=== PATIENT | female | born 1995 | race Caucasian/White ===

== ENCOUNTER 2024-12-27 09:01 | Outpatient (CLI) | payer BC, SELFPAY ==
--- NOTE | 2024-12-27 09:15 | CRLHL7_ITS ---
For Patients: As a result of the Cures Act, medical imaging exams and procedure reports are released immediately into your electronic medical record. You may view this report before your referring provider. If you have questions, please contact your health care provider. OB ULTRASOUND ??? TWIN INDICATION: Dating and viability. TECHNIQUE: Real time grayscale imaging of the fetus was performed. Transvaginal. LMP: 10/24/2024. PUMA by LMP: 07/31/2025. GA: 9 w, 1 d. Previous US: Not provided. TWIN A: CRL: 2.7 cm. 9 w 4 d. PUMA: 07/28/2025. FHR: 202 and 193 BPM. Gestational sac: 4.7 cm. Appears within normal limits. Yolk sac: 4.4 mm. Appears within normal limits. TWIN B: CRL: 2.8 cm. 9 w 4 d. PUMA: 07/28/2025. FHR: 202 and 196 BPM. Gestational sac: 4.1 cm. Appears within normal limits. Yolk sac: 4 mm. Appears within normal limits. Di-Di Right ovary: Within normal limits. 3.2 x 1.6 x 2.2 cm. CL. Left ovary: Within normal limits. 2.9 x 2.2 x 2.6 cm. CL. IMPRESSION: 1. Living twin diamniotic-dichorionic gestation. 2. Left-sided subchorionic hemorrhage measures 1.5 x 1.0 x 0.6 cm. 3. Twin A measures 9 weeks 4 days with sonographic due date 07/28/2025. 4. Twin B measures 9 weeks 4 days with a sonographic due date of 07/28/2025. 5. heart rate higher end of normal for each twin. Holland Coley M.D. Diagnostic Radiologist [email or web address] KARAN/polina fish/Dictated by: Holland Coley MD @ 12/28/2024 8:02:00 AM (Electronically Signed)
== END 2024-12-27 09:02 | disposition home or self-care (01) ==
LOC: US 09:04
PROVIDERS: PCP Family Medicine; Visit Provider Midwife
DX: O30.041 Twin pregnancy, dichorionic/diamniotic, first trimester (principal); Z3A.09 9 weeks gestation of pregnancy
CPT/HCPCS: 76817; 83021; 86703; 86706; 86803; 86850; 86900; 86901; 87086; 87340; 87491; 87591

== ENCOUNTER 2024-12-27 10:26 | Outpatient (CLI) | payer BC, SELFPAY ==
[2024-12-27 14:55] LABS: Chlamydia DNA Amplified* NOT DETECTED (No Detected); GC DNA Amplified* NOT DETECTED (No Detected)
== END 2024-12-27 10:27 | disposition home or self-care (01) ==
PROVIDERS: PCP Family Medicine; Visit Provider Midwife
DX: Z34.01 Encounter for supervision of normal first pregnancy, first trimester (principal)
CPT/HCPCS: 83020; 83021; 85660; 86592; 86703; 86704; 86706; 86762; 86787; 86803; 86850; 86900; 86901; 87086; 87340; 87491; 87591

== ENCOUNTER 2025-01-10 10:06 | Outpatient (CLI) | payer BC, SELFPAY ==
--- NOTE | 2025-01-10 10:15 | CRLHL7_ITS ---
For Patients: As a result of the Cures Act, medical imaging exams and procedure reports are released immediately into your electronic medical record. You may view this report before your referring provider. If you have questions, please contact your health care provider. OBSTETRICAL ULTRASOUND, 01/10/2025 CLINICAL INDICATION: Supervision of high-risk . Diamniotic dichorionic twins. tachycardia on first ultrasound. Surgery: No LMP: 10/24/2024 PUMA by LMP: 07/31/2025 Gestational age: 11 weeks 1 day Previous ultrasound: Yes, 12/27/2024 PUMA by ultrasound: 07/28/2025 Gestational age: 9 weeks 4 days TECHNIQUE: Real-time rangel-scale imaging of the fetus was performed transabdominal. FINDINGS: Di/Di twins. BABY A: CRL: 5.0 cm, 11 weeks 5 days; PUMA 07/27/2025 heart rate: 180 BPM Gestational sac: 5.9 cm, appears within normal limits Yolk sac: Not visualized BABY B: CRL: 5.3 cm, 12 weeks 0 days; PUMA 07/25/2025 heart rate: 193 BPM Gestational sac: 5.0 cm, appears within normal limits Yolk sac: Not visualized Right ovary: Within normal limits; 3.4 x 1.4 x 2.0 cm, CL Left ovary: Not visualized COMMENT: Previous ultrasound showed tachycardia for both twins: Baby A heart rate of 202 and 193, Baby B heart rate of 202 and 196. Baby B still showing tachycardia. IMPRESSION: 1. Twin A: Sonographic gestational age of 11 weeks 5 days and sonographic due date of 07/27/2025. heart rate 180 beats per minute. 2. Twin B: Sonographic gestational age of 12 weeks 0 days with sonographic due date of 07/25/2025. heart rate 193 beats per minute. HOLLAND GREGORY M.D. Diagnostic Radiologist [email or web address] Transcribed: 5:[address]/Dictated by: Holland Gregory MD @ 01/10/2025 4:58:00 PM (Electronically Signed)
== END 2025-01-10 10:07 | disposition home or self-care (01) ==
LOC: US 10:06
PROVIDERS: PCP Family Medicine; Visit Provider Midwife
DX: O30.041 Twin pregnancy, dichorionic/diamniotic, first trimester (principal); Z3A.11 11 weeks gestation of pregnancy
CPT/HCPCS: 76801; 76802; 84439; 84443

== ENCOUNTER 2025-02-06 13:56 | Outpatient (CLI) | payer BC, SELFPAY | END 2025-02-06 13:57 | disposition home or self-care (01) | PROVIDERS: PCP Family Medicine; Visit Provider Obstetrics & Gynecology | DX: O16.2 Unspecified maternal hypertension, second trimester (principal); Z3A.15 15 weeks gestation of pregnancy | CPT/HCPCS: 82565; 82570; 84156; 84450; 84460 ==

== ENCOUNTER 2025-02-11 05:23 | Outpatient (CLI) | payer BC, SELFPAY | END 2025-02-11 05:24 | disposition home or self-care (01) | LOC: NFLDREF 18:51 | PROVIDERS: PCP Family Medicine; Referring Provider Family Medicine; Visit Provider Obstetrics & Gynecology | DX: O16.2 Unspecified maternal hypertension, second trimester (principal); Z3A.15 15 weeks gestation of pregnancy | CPT/HCPCS: 82570; 84156 ==

== ENCOUNTER 2025-04-09 08:10 | Outpatient (CLI) | payer BC, SELFPAY ==
--- NOTE | 2025-04-09 08:15 | CRLHL7_ITS ---
For Patients: As a result of the Century Cures Act, medical imaging exams and procedure reports are released immediately into your electronic medical record. You may view this report before your referring provider. If you have questions, please contact your health care provider. INDICATION: Twin . Assess growth. TECHNIQUE: Ultrasound OB pelvis transabdominal. Real time rangel scale imaging of the fetuses was performed. COMPARISON: Ultrasound 03/13/2025 FINDINGS: Sonographic imaging demonstrates dichorionic diamniotic twin living intrauterine gestations. Cervical length measures 3.4 cm. Twin A: Fetus demonstrates a regular cardiac rate of 161 beats per minute. Fetus has a vertex orientation. The placenta lies anteriorly without evidence of placenta previa. Amniotic fluid volume appears normal. Single deepest vertical pocket: 5.7 cm. Persistent right umbilical vein is again visualized. The composite ultrasound gestational age is calculated at 24 weeks 3 days with an estimated sonographic due date of 07/27/2025. The estimated weight is 668 grams which lies at the 56%. The following biometric measurements were obtained: Biparietal diameter: 6 cm, 24 weeks 2 days Head circumference: 23 cm, 25 weeks Abdominal circumference: 19.2 cm, 24 weeks Femur length: 4.3 cm, 24 weeks 2 days Twin B: Fetus demonstrates a regular cardiac rate of 155 beats per minute. Fetus has a vertex orientation. The placenta lies posteriorly without evidence of placenta previa. Amniotic fluid volume appears normal. Single deepest vertical pocket: 6.1 cm. The composite ultrasound gestational age is calculated at 24 weeks 1 day with an estimated sonographic due date of 07/29/2025. The estimated weight is 704 grams which lies at the 73%. The following biometric measurements were obtained: Biparietal diameter: 5.7 cm, 23 weeks 3 days Head circumference: 21.8 cm, 23 weeks 6 days Abdominal circumference: 20.4 cm, 25 weeks Femur length: 4.3 cm, 24 weeks 1 day IMPRESSION: 1. Living twin intrauterine gestations which appear to demonstrate appropriate interval growth. 2. Twin A: Composite ultrasound gestational age of 24 weeks 3 days with estimated sonographic due date of 07/27/2025. 3. Twin B: Composite ultrasound gestational age of 24 weeks 1 day with estimated sonographic due date of 07/29/2025. Dictated by Yobany Damon MD @ 04/13/2025 6:54:36 PM (Electronically Signed)
== END 2025-04-09 08:11 | disposition home or self-care (01) ==
LOC: US 08:11
PROVIDERS: PCP Family Medicine; Visit Provider Obstetrics & Gynecology
DX: O30.042 Twin pregnancy, dichorionic/diamniotic, second trimester (principal); Z3A.24 24 weeks gestation of pregnancy
CPT/HCPCS: 76816

== ENCOUNTER 2025-05-07 09:04 | Outpatient (CLI) | payer BC, SELFPAY | END 2025-05-07 09:05 | disposition home or self-care (01) | LOC: NFLDREF 09:05 | PROVIDERS: PCP Family Medicine; Visit Provider Obstetrics & Gynecology | DX: O30.002 Twin pregnancy, unspecified number of placenta and unspecified number of amniotic sacs, second trimester (principal); Z3A.27 27 weeks gestation of pregnancy | CPT/HCPCS: 76816; 82565; 82570; 84156; 84450; 84460; 86592; 86850; J2791 ==

== ENCOUNTER 2025-05-10 08:38 | Outpatient (CLI) | payer BC, SELFPAY | END 2025-05-10 08:39 | disposition home or self-care (01) | LOC: NFLDREF 05-14 03:02 | PROVIDERS: PCP Family Medicine; Referring Provider Family Medicine; Visit Provider Obstetrics & Gynecology | DX: R73.09 Other abnormal glucose (principal) | CPT/HCPCS: 82951; 82952 ==

== ENCOUNTER 2025-05-14 13:45 | Outpatient (CLI) | payer BC, SELFPAY | END 2025-05-14 13:46 | disposition home or self-care (01) | LOC: NFLDREF 05-15 13:17 | PROVIDERS: PCP Family Medicine; Referring Provider Family Medicine; Visit Provider Obstetrics & Gynecology | DX: O10.913 Unspecified pre-existing hypertension complicating pregnancy, third trimester (principal); Z3A.28 28 weeks gestation of pregnancy | CPT/HCPCS: 82565; 82570; 84156; 84450; 84460; 84520 ==

== ENCOUNTER 2025-05-20 08:15 | Outpatient (CLI) | payer BC, SELFPAY | END 2025-05-20 08:16 | disposition home or self-care (01) | PROVIDERS: PCP Family Medicine; Referring Provider Family Medicine; Visit Provider Obstetrics & Gynecology | DX: O10.913 Unspecified pre-existing hypertension complicating pregnancy, third trimester (principal) | CPT/HCPCS: 82565; 82570; 84156; 84450; 84460 ==

== ENCOUNTER 2025-06-04 08:13 | Outpatient (CLI) | payer BC, SELFPAY ==
--- NOTE | 2025-06-04 08:15 | CRLHL7_ITS ---
For Patients: As a result of the Century Cures Act, medical imaging exams and procedure reports are released immediately into your electronic medical record. You may view this report before your referring provider. If you have questions, please contact your health care provider. OBSTETRICAL ULTRASOUND, TWINS ??? BIOPHYSICAL PROFILE, 06/04/2025 INDICATION: Dichorionic/diamniotic twins. Growth. Biophysical profile. CLINICAL HISTORY: PUMA by LMP: 07/31/2025 Gestational Age: 31 weeks 6 days COMPARISON: 05/07/2025, 04/09/2025, 03/13/2025. TECHNIQUE: Real-time rangel-scale transabdominal imaging of the twin fetuses was performed. FINDINGS: Fetus: TWIN A Cervix: Not visualized positioning: Vertex Amniotic Fluid: 4.8 cm SDP BIOPHYSICAL PROFILE: Gross body movements: 2 tone: 2 Respiratory activity: 2 Amniotic fluid SDP: 2 Total score: 8 Placenta position: Anterior heart rate: 145 bpm BIOMETRY: BPD: 8.1 cm, 32 weeks 4 days, 64.4% HC: 29.5 cm, 32 weeks 4 days, 32.3% AC: 27.7 cm, 31 weeks 6 days, 46.4% FL: 5.9 cm, 30 weeks 5 days, 10.7% FL/AC Ratio: 21.2% HC/AC ratio: 1.1 EFW: 1799 grams; 3 lbs. 15 oz. age by this ultrasound: 32 weeks 0 days PUMA by this ultrasound: 07/30/2025 Percentile by PUMA: 30.4% Fetus: TWIN B positioning: Vertex Amniotic Fluid: 4.1 cm SDP BIOPHYSICAL PROFILE: Gross body movements: 2 tone: 2 Respiratory activity: 2 Amniotic fluid SDP: 2 Total score: 8 Placenta position: Posterior heart rate: 137 bpm BIOMETRY: BPD: 7.6 cm, 30 weeks 3 days, 7.2% HC: 28.8 cm, 31 weeks 5 days, 11.7% AC: 26.6 cm, 30 weeks 5 days, 17.2% FL: 6.0 cm, 31 weeks 2 days, 22.9% FL/AC Ratio: 22.6% HC/AC ratio: 1.1 EFW: 1674 grams; 3 lbs. 11 oz. age by this ultrasound: 31 weeks 0 days PUMA by this ultrasound: 08/06/2025 Percentile by PUMA: 15.3% IMPRESSION: TWIN A: 1. Sonographic gestational age is 32 weeks 0 days and sonographic due date is 07/30/2025. Good correlation with dates. Normal interval growth. 2. Estimated weight is 30th percentile. Abdominal circumference is 46th percentile. 3. Normal biophysical profile score of 8/8. 4. Vertex position, maternal right. Anterior placenta. TWIN B: 1. Sonographic gestational age is 31 weeks 0 days and sonographic due date is 08/06/2025. Sonographic age is 6 days behind the clinical age. 2. Estimated weight is 15th percentile. Abdominal circumference is 17th percentile. 3. Normal biophysical profile score of 8/8. 4. Vertex position, maternal left. Posterior placenta. HOLLAND GREGORY M.D. Diagnostic Radiologist [email or web address] Transcribed: 4:[address]/Dictated by: Holland Gregory MD @ 06/04/2025 3:28:00 PM (Electronically Signed)
== END 2025-06-04 08:14 | disposition home or self-care (01) ==
LOC: US 08:14
PROVIDERS: PCP Family Medicine; Visit Provider Obstetrics & Gynecology
DX: O30.043 Twin pregnancy, dichorionic/diamniotic, third trimester (principal); Z3A.32 32 weeks gestation of pregnancy
CPT/HCPCS: 76816; 76819; 82565; 82570; 84156; 84450; 84460

== ENCOUNTER 2025-06-12 12:49 | Outpatient (CLI) | payer BC, SELFPAY ==
--- NOTE | 2025-06-12 13:00 | CRLHL7_ITS ---
For Patients: As a result of the Cures Act, medical imaging exams and procedure reports are released immediately into your electronic medical record. You may view this report before your referring provider. If you have questions, please contact your health care provider. OBSTETRICAL ULTRASOUND TWINS ??? BIOPHYSICAL PROFILE, 06/12/2025 INDICATION: Dichorionic diamniotic twins. Biophysical profile. CLINICAL HISTORY: LMP: 10/24/2024 PUMA by LMP: 07/31/2025 Gestational Age: 33 weeks 0 days Surgery: No PRIOR ULTRASOUND: 06/04/2025 TECHNIQUE: Real-time rangel-scale transabdominal imaging of the fetuses was performed. FINDINGS: Fetus: TWIN A Cervix: Not visualized positioning: Vertex Amniotic Fluid: 4.4 cm SDP BIOPHYSICAL PROFILE: Gross body movements: 2 tone: 2 Respiratory activity: 2 Amniotic fluid SDP: 2 Total score: 8 Placenta position: Anterior heart rate: 135 bpm Fetus: TWIN B positioning: Vertex Amniotic Fluid: 3.0 cm SDP BIOPHYSICAL PROFILE: Gross body movements: 2 tone: 2 Respiratory activity: 2 Amniotic fluid SDP: 2 Total score: 8 Placenta position: Posterior heart rate: 142 bpm IMPRESSION: 1. Twin A: Normal biophysical profile score of 8/8. Anterior placenta. Maternal right, vertex position. 2. Twin B: Normal biophysical profile score of 8/8. Posterior placenta. Maternal left, vertex position. HOLLAND GREGORY M.D. Diagnostic Radiologist [email or web address] Transcribed: 4:[address]/Dictated by: Holland Gregory MD @ 06/12/2025 4:44:00 PM (Electronically Signed)
== END 2025-06-12 12:50 | disposition home or self-care (01) ==
LOC: US 12:49
PROVIDERS: PCP Family Medicine; Visit Provider Obstetrics & Gynecology
DX: O30.043 Twin pregnancy, dichorionic/diamniotic, third trimester (principal); Z3A.33 33 weeks gestation of pregnancy; O10.919 Unspecified pre-existing hypertension complicating pregnancy, unspecified trimester; O09.91 Supervision of high risk pregnancy, unspecified, first trimester
CPT/HCPCS: 76819; 82565; 82570; 84156; 84450; 84460

== ENCOUNTER 2025-06-19 09:05 | Outpatient (CLI) | payer BC, SELFPAY ==
[2025-06-20 11:53] LABS: Strep B DNA Probe POSITIVE (Negative)
[2025-06-20 12:02] LABS: Strep B Susceptibility Needed? No
== END 2025-06-19 09:06 | disposition home or self-care (01) ==
LOC: NFLDREF 10:12
PROVIDERS: PCP Family Medicine; Referring Provider Family Medicine; Visit Provider Obstetrics & Gynecology
DX: O10.913 Unspecified pre-existing hypertension complicating pregnancy, third trimester (principal); O30.043 Twin pregnancy, dichorionic/diamniotic, third trimester; Z3A.34 34 weeks gestation of pregnancy
CPT/HCPCS: 82565; 82570; 84156; 84450; 84460; 87081; 87653

== ENCOUNTER 2025-06-19 09:11 | Outpatient (CLI) | payer BC, SELFPAY ==
--- NOTE | 2025-06-19 09:15 | CRLHL7_ITS ---
For Patients: As a result of the Cures Act, medical imaging exams and procedure reports are released immediately into your electronic medical record. You may view this report before your referring provider. If you have questions, please contact your health care provider. OB ULTRASOUND BIOPHYSICAL PROFILE TWIN CLINICAL HISTORY: CHTN. COMPARISON: 06/12/2025. TECHNIQUE: Real time rangel scale imaging of the fetus was performed. Transabdominal imaging performed. FINDINGS: LMP: 10/24/2024. PUMA by LMP: 07/31/2025. GA: 34 weeks 0 days. TWIN A: Cervix: Not visualized. Position: Vertex. Amniotic Fluid: 3.8 cm SDP BIOPHYSICAL PROFILE Gross Body Movements: 2 Tone: 2 Respiratory Activity: 2 Amniotic Fluid SDP: 2 Total Score: 8 Placenta Position: Anterior. Dopplers: Heart Rate: 161 bpm. TWIN B: Positioning: Vertex. Amniotic Fluid: 3.6 cm SDP. BIOPHYSICAL PROFILE: Gross Body Movements: 2 Tone: 2 Respiratory Activity: 2 Amniotic Fluid SDP: 2 Total Score: 8 Placenta Position: Posterior. Dopplers: Heart Rate: 144 bpm. IMPRESSION: 1. Twin A: Normal biophysical profile 04/19. Vertex position, maternal right. 2. Twin B: Normal biophysical profile 04/19. Vertex position, maternal left. Holland Coley M.D. Diagnostic Radiologist [email or web address] Transcribed: 11:39 am DW/Dictated by: Holland Coley MD @ 06/19/2025 10:43:00 AM (Electronically Signed)
== END 2025-06-19 09:12 | disposition home or self-care (01) ==
LOC: US 09:11
PROVIDERS: PCP Family Medicine; Visit Provider Obstetrics & Gynecology
DX: O30.043 Twin pregnancy, dichorionic/diamniotic, third trimester (principal); O10.913 Unspecified pre-existing hypertension complicating pregnancy, third trimester; Z3A.34 34 weeks gestation of pregnancy
CPT/HCPCS: 76819; 82565; 82570; 84156; 84450; 84460; 87081; 87653

== ENCOUNTER 2025-06-25 09:12 | Outpatient (CLI) | payer BC, SELFPAY ==
--- NOTE | 2025-06-25 09:15 | CRLHL7_ITS ---
For Patients: As a result of the Cures Act, medical imaging exams and procedure reports are released immediately into your electronic medical record. You may view this report before your referring provider. If you have questions, please contact your health care provider. OBSTETRICAL ULTRASOUND ??? BIOPHYSICAL PROFILE INDICATION: Dichorionic diamniotic twins. Preexisting hypertension. CLINICAL HISTORY: LMP: 10/24/2024 PUAM by LMP: 07/31/2025 Gestational Age: 34 weeks 6 days PRIOR ULTRASOUND: 06/19/2025 TECHNIQUE: Real-time rangel-scale transabdominal imaging of the fetuses was performed. FINDINGS: Fetus: TWIN A Cervix: Not visualized positioning: Vertex Amniotic Fluid: 5.2 cm SDP BIOPHYSICAL PROFILE: Gross body movements: 2 tone: 2 Respiratory activity: 2 Amniotic fluid SDP: 2 Total score: 8 Placenta position: Anterior heart rate: 144 bpm Fetus: TWIN B positioning: Vertex Amniotic Fluid: 2.4 cm SDP BIOPHYSICAL PROFILE: Gross body movements: 2 tone: 2 Respiratory activity: 2 Amniotic fluid SDP: 2 Total score: 8 Placenta position: Posterior heart rate: 147 bpm IMPRESSION: 1. Twin A: Normal biophysical profile score of 8/8. Vertex position, maternal right. 2. Twin B: Normal biophysical profile score of 8/8. Vertex position, maternal left. Amniotic fluid single deepest pocket is 2.4 cm. HOLLAND GREGORY M.D. Diagnostic Radiologist [email or web address] Transcribed: 11:[address]/Dictated by: Holland Gregory MD @ 06/25/2025 10:33:00 AM (Electronically Signed)
== END 2025-06-25 09:13 | disposition home or self-care (01) ==
LOC: US 09:13
PROVIDERS: PCP Family Medicine; Visit Provider Obstetrics & Gynecology
DX: O30.043 Twin pregnancy, dichorionic/diamniotic, third trimester (principal); O10.913 Unspecified pre-existing hypertension complicating pregnancy, third trimester; Z3A.34 34 weeks gestation of pregnancy
CPT/HCPCS: 76819; 82565; 82570; 84156; 84450; 84460

== ENCOUNTER 2025-07-05 09:05 | Outpatient (CLI) | payer BC, SELFPAY | END 2025-07-05 09:06 | disposition home or self-care (01) | LOC: NFLDREF 07-06 19:57 | PROVIDERS: PCP Family Medicine; Referring Provider Family Medicine; Visit Provider Obstetrics & Gynecology | DX: O10.913 Unspecified pre-existing hypertension complicating pregnancy, third trimester (principal); O30.043 Twin pregnancy, dichorionic/diamniotic, third trimester; Z3A.36 36 weeks gestation of pregnancy | CPT/HCPCS: 82565; 82570; 84156; 84450; 84460 ==

== ENCOUNTER 2025-07-05 09:11 | Outpatient (CLI) | payer BC, SELFPAY ==
--- NOTE | 2025-07-05 09:15 | CRLHL7_ITS ---
For Patients: As a result of the Century Cures Act, medical imaging exams and procedure reports are released immediately into your electronic medical record. You may view this report before your referring provider. If you have questions, please contact your health care provider. OB ULTRASOUND PUMA by LMP: 07/31/2025. GA: 36 w, 2 d. Comparison: Ultrasound 06/25/2025, 06/19/2025, 06/12/2025, 06/04/2025. INDICATION: Di-di twins. TECHNIQUE: Real time grayscale imaging of the fetus was performed. Transabdominal. TWIN A: CERVIX: Not visualized. POSITIONING: Vertex. AMNIOTIC FLUID: 5.5 cm. SDP (N: greater than 2 x 1 cm) BIOPHYSICAL PROFILE: 2: Gross body movements 2: tone 2: Respiratory activity 2: Amniotic fluid SDP (N: greater than 2 x 1 cm) 8: Total score PLACENTA: Technique: Transabdominal. PLACENTA POSITION: Anterior. DOPPLER: heart rate: 142 bpm. BIOMETRY: BPD: 9.0 cm. 36 w, 4 d, 68%. HC: 32.9 cm. 37 w, 3 d, 49%. AC: 31.5 cm. 35 w, 3 d, 36%. FL: 6.7 cm. 34 w, 3 d, 8.7%. FL/AC ratio: 21.28%. HC/AC ratio: 1.05. EFW: 2693g. Weight: 5 lbs., 15 oz. age by this US: 36 w, 0 d. PUMA by this US: 08/02/2025. Percentile by PUMA: 31%. TWIN B: POSITIONING: Vertex. AMNIOTIC FLUID: 3.7 cm. SDP (N: greater than 2 x 1 cm) BIOPHYSICAL PROFILE: 2: Gross body movements 2: tone 2: Respiratory activity 2: Amniotic fluid SDP (N: greater than 2 x 1 cm) 8: Total score PLACENTA: Technique: Transabdominal. PLACENTA POSITION: Posterior. DOPPLER: heart rate: 147 bpm. Umbilical artery: 2.5-2.9 S/D. Greater than 34 we = less than 3.5. BIOMETRY: BPD: 8.1 cm. 32 w, 5 d, <3%. HC: 31.1 cm. 34 w, 6 d, 3.2%. AC: 30.1 cm. 34 w, 1 d, 8%. FL: 6.5 cm. 33 w, 4 d, <3%. FL/AC ratio: 21.65%. HC/AC ratio: 1.03. EFW: 2300g. Weight: 5 lbs., 1 oz. age by this US: 33 w, 6 d. PUMA by this US: 08/17/2025. Percentile by PUAM: 5.8%. IMPRESSION: 1. Twin A: Vertex position, maternal right. Sonographic gestational age 36 weeks 0 days and sonographic due date 08/02/2025. Good correlation with dates. Normal interval growth. Estimated weight 31st percentile. Abdominal circumference 36th percentile. Biophysical profile score 8/8. 2. Twin B: Vertex position, maternal left. Sonographic gestational age 33 weeks 6 days with sonographic due date 08/17/2025. Sonographic age is 17 days behind the clinical age. Estimated weight 6th percentile. Abdominal circumference 8th percentile. Femur length and BPD both less than 3rd percentile. Biophysical profile score 8/8. Doppler evaluation of the umbilical artery performed. S/D ratio 2.5. Holland Coley M.D. Diagnostic Radiologist [email or web address] KARAN/polina fish/Dictated by: Holland Coley MD @ 07/05/2025 11:05:00 AM (Electronically Signed)
== END 2025-07-05 09:12 | disposition home or self-care (01) ==
LOC: US 09:12
PROVIDERS: PCP Family Medicine; Visit Provider Obstetrics & Gynecology
DX: O30.043 Twin pregnancy, dichorionic/diamniotic, third trimester (principal); O36.5930 Maternal care for other known or suspected poor fetal growth, third trimester, not applicable or unspecified; Z3A.36 36 weeks gestation of pregnancy
CPT/HCPCS: 76816; 76819

== ENCOUNTER 2025-07-05 11:23 | Inpatient (IN) | payer BC, SELFPAY ==
[2025-07-05] VITALS (31 sets, daily range): BP systolic 121–157; BP diastolic 75–102; PULSE 79–112; RESP 12–16; TEMP 36.5–37; O2SAT 97–100; BMI 38.7
[2025-07-05 12:15] LABS: Hematocrit* 34.6 % (33.0-51.0); Hemoglobin* 11.4 gm/dL (12.0-16.0); Immature Granulocytes Abs Auto 0.05 K/uL (0.00-0.30); Immature Granulocytes Pct Auto 0.5 %; Mean Corpuscular HGB Conc 33 gm/dL (32-36); Mean Corpuscular Hemoglobin 28 pg (26-34); Mean Corpuscular Volume 85 fL (80-100); RDW Coefficient of Variation % 14.9 % (11.5-15.5); Red Blood Count* 4.06 m/uL (4.00-5.20); White Blood Count* 9.91 K/uL (4.50-11.00)
[2025-07-05 12:20] LABS: Lymphocytes Absolute Auto 1.00 K/uL (0.90-2.90); Slide Review Reflex No
[2025-07-05] MEDS: LACTATED RINGERS 1000 ML 1,000 ML 925 ML IV (12:30)
[2025-07-05] MEDS: LACTATED RINGERS 1000 ML 1,000 ML 125 ML IV ×3 (16:28→22:15)
--- NOTE | 2025-07-05 17:12 | P.LDBA_ITS ---
Subjective History of Present Illness Time Seen by Provider: 12:00 Narrative: Patient is being admitted to Labor and Delivery for delivery. She is a 30 year old at 36.2 weeks gestation. Her full history and physical was dictated by Dr. Gandhi on 06/25. Please see this for details. Patient presented for growth scan and high risk visit. She was subsequently diagnosed with new onset of growth restriction of twin B. US today Twin A: EFW 31%tile, AC 36%. SDP 5.5 cm. BPP 8/8. Twin B: EFW 5.8%tile, AC 8%tile. SDP 3.7 cm. BPP 8/8. Doppler wnl Twin B was previously at the 15%tile. Given that twin B has fallen off the growth curve and officially has growth restriction in the setting of di-di twins beyond 36 weeks, delivery was recommended. She has some lidia gold contractions but no other labor symptoms. Specific Issues/Plans G1 P 0 Partner: Dario H&P completed by Dr. Gandhi on 06/25 ? ? # Di/Di Twin * Genetic screening recommended - politely declined * 20-week detailed Level II US with MFM- order placed? * See details below. Twin A with persistent R umbilical vein, both with suboptimal cardiac views. Discordance 9% with Twin B bigger. * echos reportedly normal from 04/16 * Serial growth and monitoring per cHTN on meds * Discussed twin vaginal delivery 05/07/2025; patient favors primary delivery - requested 07/10/25 #Chronic HTN - Dx at 15 weeks, started labetolol on 02/06 > increased to 200mg BID on 02/20 > 300mg BID 02/25 > 300mg TID on 04/09 [x] baseline preE labs normal, UPCR 0.23 [x] 24 hour urine - normal at 260 ASA 81mg Serial growth US as above, weekly testing and labs starting at 32 weeks Previous mild AST elevation resolved as of 06/04, 46 on 06/12 > normalized on repeat [x] testing sheet after MFM consult 37 week delivery for cHTN on meds and twins # Elevated 1 hr GTT = 151. 3 hr GTT normal (82/165/122/112) # Anemia with Hb 10.7 at 28 weeks. Ferrous sulfate 325 mg QOD Repeat Hb at 34 weeks: 11.1 #Pre- BMI:33.4 # GBS positive. #Rh negative Rhogam at 28 weeks 05/07 Rhogam PP Imaging:? 1st trimester: 12/27/24 TWINS! 9 1/7 weeks by LMP, Each baby 9 4/7 weeks by u/s? PUMA: 07/31/2025 by LMP, c/w 1st trimester u/s. TLIUP? 01/10 early US: Twin A: Sonographic gestational age of 11 weeks 5 days and sonographic due date of 07/27/2025. heart rate 180 beats per minute. 2.Twin B: Sonographic gestational age of 12 weeks 0 days with sonographic due date of 07/25/2025. heart rate 193 beats per minute. Level 2 03/13: Anterior placentas, no previa. Cx 44mm. Twin A: Cephalic, maternal R. FHR 158bpm. Visualized anatomy normal aside from persistent R umbilical vein, suboptimal views of cardiac structures. EFW 328g at 47%ile, AC 66%ile. 3 vessel cord, MVP 4.3cm. Twin B: Variable presentation, maternal L/superior. FHR 151bpm. Visualized anatomy is normal, suboptimal cardiac views. EFW 364g at 77%ile, AC 77%ile. 3 vessel cord, MVP 5.9cm. Intertwin discordance of 9.4%. 04/09 Growth: - Twin A: Vertex. EFW 667.8g at 56%ile - BPD 60%, HC 77.7%, AC 43.5%, FL 50%. MVP 5.7cm. FHR 161bpm. - Twin B: Vertex. EFW 704g at 72.6%ile - BPD 28%, HC 31%, AC 77%, FL 48%. MVP 6.1cm. FHR 155bpm. 04/16: Both echoes within normal limits. Difficult study x2 but no apparent major anomalies. nothing further recommended. 05/07/25 = 27 6/7 wks - Twin A: Maternal right. Cephalic, SDP 5.3 cm, EFW 50.8% = 1191 g, AC 56.1%, all growth parameters within normal ranges. - twin B: Maternal left. Breech, SDP 4.9 cm, EFW 50.7% = 1190 g, AC 79.1%, all growth parameters within normal ranges - 1 gram weight discrepancy!!! 06/04: - Twin A: Vertex. EFW 1799g at 30%ile - BPD 64%, HC 32%, AC 46%, FL 10.7%. 8/8 BPP. MVP 4.8cm. - Twin B: Vertex. EFW 1674g at 15%ile - BPD 7%, 12%, AC 17%, FL 23%. 8/8BPP. MVP 4.1cm - 7% discordance Others: []? ? COVID:?declines Flu:?06/19/25 Tdap:?05/22/25 RSV: 06/12/25 32wk Mental Health:?06/04/25 34wk hgb:?11.1?? Pap: 12/22/2023 NILM?-per outside records. ? OB - Problem Based A/P Additional Plan (1) Chronic hypertension affecting : Status: Acute Plan: - Continue Labetalol 300 mg TID - PreE labs pending (2) High-risk supervision: Status: Acute (3) Twin : Status: Acute (4) growth restriction: Status: Acute Plan - Plan: Will proceed towards primary delivery per patient's preference on mode of delivery for twins. - Hgb/plt: 11.4/154 - T&S: A negative, antibody screen positive with identification pending (presumed from Rhophylac) - OR team notified. Will wait for NPO status which is anticipated to be after 1530. Patient will be continuously monitor the entire time while on L&D. Will proceed sooner if urgent or emergent. OB Exam Physical Exam Vital signs: Temp Pulse Resp BP Pulse Ox 98.6 F 100 16 138/93 H 98 07/05/25 16:28 07/05/25 16:43 07/05/25 16:28 07/05/25 16:43 07/05/25 14:37 Narrative: Physical exam: General: No acute distress Psych: Alert and oriented x3, full affect HEENT: Normocephalic, atraumatic Lungs: Unlabored breathing Neuro: No focal deficit. Mentating appropriately Pelvic exam: Deferred
[2025-07-05] MEDS: CEFAZOLIN 2 GM INJ IVP (18:22)
[2025-07-05] MEDS: OXYTOCIN 30 unit/500 ML in NS 30 UNIT/500 ML BAG 300 UNIT IVPB (18:36)
--- NOTE | 2025-07-05 19:23 | W.PM.NB ---
Nerve Block Nerve Block Time Seen by Provider: 19:33 Date Seen: 07/05/25 Type of block requested by surgeon for post-operative analgesia: TAP Side: bilateral Time out performed: Yes Verification of patient name: Yes Verification of date of : Yes Site marking: site marked Name of person performing procedure: Patrick Muniz Continuous monitoring Was continuous monitoring of O2 sat, B/P, monitoring engineer, recorded every 15 minutes?: Yes Procedure Checklist: sterile prep, needles and gloves Ultrasound guided. Images saved: Yes Medications given in 5ml increments after negative aspiration: Marcaine %: 0.25 mL: 30 Needle gauge: 20 and Exparel mL: 10 Needle gauge: 20 Patient tolerated procedure well: Yes Additional comments: Injected in 5 mL increments after negative aspiration Block Charges Block Charge (with Pro Fee): TAP Bilateral Use of Ultrasound Machine for Block: Yes- US Guidance/pain block
[2025-07-05] MEDS: miSOPROStoL 800 MCG/4 TABLET PR (19:26)
[2025-07-05] MEDS: LOPERAMIDE HCL 2 MG CAPSULE 4 MG PO (19:45)
--- NOTE | 2025-07-05 19:48 | P.ANES_ITS ---
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
--- NOTE | 2025-07-05 19:48 | W.ANESCHARGE ---
Anesthesia Charges Start Date/Time Anesthesia Start Date: 07/05/25 Anesthesia Start Time: 18:05 Stop Date/Time Anesthesia Stop Date: 07/05/25 Anesthesia Stop Time: 19:40 Coding CPT Codes CPT Codes: ANESTH CS DELIVERY - 25531 ([id number]) P2 - PATIENT W/MILD SYST DISEASE, QZ - HVAC PROJECT ENGINEER SVC W/O POWER BALLAST MACHINE OPERATOR BY
--- NOTE | 2025-07-05 20:04 | P.OBPRC_ITS ---
Procedure Time Seen by Provider: 18:00 Date of procedure: 07/05/25 Procedure Done: Global Will [facility] bill your pro fee for this procedure?: Yes IV fluids (mL): 1,700 Urine Output (mL): 10 (Clear) Procedure Description: DELIVERY BY SECTION Date of Service: 07/05/25 Delivery time: 1. Twin A - 1833 2. Twin B - 1834 Summary: Admitted for delivery at 36.2 weeks, Primary Lower uterine transverse section, Pfannenstiel, Closed with sutures, QBL 723 cc, No complications, Findings: Normal uterus, bilateral ovaries and tubes APGARs 1. Twin A - /8. 2630 g 2. Twin B - /. 2000 g Primary Indication: 1. Dichorionic diamniotic twins 2. growth restriction of twin B Procedures: Primary Lower uterine transverse section Specimens Removed: Placenta x 2 Surgeon: Batsheva Chew MD Felled Seam Operator Surgeon: Kayley Rivas MD Anesthesia: Spinal, TAP block Report: Prophylactic antibiotic, 2 g of Ancef was given before patient was taken to OR. After arrival to the operating room patient was placed in the supine position with left lateral tilt after administration of spinal anesthesia. She was prepped and draped in the usual sterile manner. Laparotomy A pfannenstiel incision was made through the anterior abdominal wall with #10 scalpel approximately 2 cm above the pubic symphysis. The incision was extended sharply with the #10 scalpel through the subcutaneous tissue to the level of fascia. The fascia was entered sharply with a #10 scalpel (Pfannenstiel) in the midline and extended in semi-elliptical fashion with Smith scissor. The underlying muscles were dissected off the overlying fascia by grasping the superior aspect of fascia with two mirta clamps and blunt dissection was used along the midline. The fascia was further from rectus muscle with Smith scissor and/or cautery. In similar fashion, the lower aspect of fascia was also grasped with two Mirta clamps and both blunt and sharp dissection was used to separate fascia from rectus muscle. The rectus muscles were in the midline bluntly with digits. The peritoneum was then entered bluntly. The peritoneal incision was then extended superiorly and inferiorly under direct visualization with care being taken to avoid bladder and bowel. No adhesions were noted. The peritoneal incision was enlarged bluntly by lateral traction from the surgeon's and hospital nursing assistant's hand. Konstantin retractor was inserted into the abdomen. Delivery A bladder flap was not made as bladder was decompressed and low off the lower uterine segment. A low transverse hysterotomy was made then with #10 scalpel and extended laterally and cephalad with fingers in a low transverse fashion with Manu Hatfield technique with care being taken to avoid injury to the fetus. The amniotic cavity (membrane) was then entered with spontaneous rupture of membrane, and the amniotic fluid was noted to be clear, Twin A was delivered cephalic. After Twin A was handed off to pediatric team, the amniotic membrane of twin B was entered. Amniotic fluid was noted to be clear, Twin B was delivered cephalic. With delivery of the babies, no extension was noted. Cord blood obtained separately. Placentas were delivered spontaneously with steady traction on the cords and manual separation of placentas from uterine wall. Closure Uterine cavity was cleaned after placental delivery with lap sponge x 3. The hysterotomy was closed in two layers with stitches using 0 vicryl with continuous locking stitches and 0 monocryl in a continuous non locking manner. One [id number] placed in the middle of the hysterotomy with 0 Vicryl. Hemostasis was achieved as needed with electrocautery. Lower uterine segment atony was noted and treated successfully with uterotonics. The ovaries/tubes/uterine surface were evaluated. They were found to be normal. Konstantin retractor removed and hemostasis was confirmed again. Fascia was closed with running stitches using 0 vicryl. Subcutaneous layer was irrigated. Hemostasis was checked for and found to be adequate. The subcutaneous layer was closed with running 2-0 vicryl sutures. The skin was closed with 4-0 monocryl subcuticular sutures . The incision was cleaned, Exofin applied, and Mepilex dressing placed. The procedure considered terminate at this time. Intraoperative Complications: None QBL: 723 cc Uterotonics/hemostatic agents: 40u of pitocin, 0.25 mg of Hemabate, 800 mcg misoprostol HI, 1g of TXA Disposition: The patient tolerated the procedure well. She was recovered in Obstetric PACU for close monitoring in stable condition, with a contracted uterus and normal transvaginal bleeding. The infants were sent to the nursery. The placentas were sent to pathology. Debrief with OR team performed and specimen reviewed at the conclusion of the procedure.
[2025-07-05] MEDS: LABETALOL HCL 100 MG TABLET 300 MG PO (20:13)
[2025-07-05 21:08] LABS: Hematocrit* 33.9 % (33.0-51.0); Hemoglobin* 11.0 gm/dL (12.0-16.0); Mean Corpuscular HGB Conc 32 gm/dL (32-36); Mean Corpuscular Hemoglobin 28 pg (26-34); Mean Corpuscular Volume 86 fL (80-100); Red Blood Count* 3.94 m/uL (4.00-5.20); White Blood Count* 15.10 K/uL (4.50-11.00)
[2025-07-05 21:15] LABS: Slide Review Reflex No
[2025-07-05 21:21] LABS: Alanine Aminotransferase* 17 U/L (4-35); Aspartate Amino Transferase* 33 U/L (12-35); Blood Urea Nitrogen* 11 mg/dL (5-24); Creatinine* 0.7 mg/dL (0.5-1.5); Est. Creatinine Clearance* 119.62; Estimated Glomerular Filt Rate 120 ml/min
[2025-07-05 22:50] LABS: Protein Creatinine Ratio Urine 0.08 (0-0.19)
[2025-07-06] VITALS (7 sets, daily range): BP systolic 94–138; BP diastolic 48–87; PULSE 80–108; RESP 16–20; TEMP 36.6–37.1; O2SAT 95–98
[2025-07-06 06:26] LABS: Hemoglobin* 9.9 gm/dL (12.0-16.0)
[2025-07-06] MEDS: LABETALOL HCL 100 MG TABLET 300 MG PO ×3 (09:51→20:44)
[2025-07-06] MEDS: DOCUSATE SODIUM 100 MG CAPSULE PO (09:52)
--- NOTE | 2025-07-06 15:38 | PM.OBPNVD1 ---
OB - PN:Subj Subjective Date Seen: 07/06/25 Narrative: The patient is a 30-year-old 1 now para 0102 who is postoperative day 1. Following a primary low transverse section of twins at 36 2/7 weeks gestation. The early delivery was indicated for IUGR twin B. Both infants are doing well and remain with the mother. The patient is pumping and bottle feeding. Her pain control has been adequate and she is ambulating without difficulty. Martin catheter has been removed. She had some elevation in blood pressure last evening, and get a single dose of nifedipine ER 30 mg. Since then, her blood pressure has been stable and she has been continued on labetalol 300 mg t.i.d.. OB - PN: Obj Exam Physical Exam: Vital signs: Temp Pulse Resp BP Pulse Ox O2 Del Method 98.7 F 101 H 18 120/78 98 Room Air 07/06/25 08:36 07/06/25 13:30 07/06/25 13:30 07/06/25 13:30 07/06/25 13:30 07/06/25 08:36 Constitutional: Constitutional: no acute distress Routine Neck Exam: Neck: Present normal inspection Routine Respiratory Exam: Respiratory: Present CTA bilaterally; Absent respiratory distress Routine Cardiovascular Exam: Cardiovascular: Present RRR; Absent murmur Routine Abdominal Exam: Abdominal: Present soft; Absent tenderness Fundus: Present firm Routine Extremities Exam: Extremities: Present normal inspection and pedal edema; Absent calf tenderness Routine Neurological Exam: Neurological: Present alert and oriented X3 Routine Psychiatric Exam: Psychiatric: Present normal affect Wound Management: Method: suture Examination: Present dressed, clean and dry; Absent erythematous Comments: Pfannenstiel incision OB - PN: Obj Data Labs Labs: Laboratory Results - last 24 hr 07/05/25 07/05/25 07/06/25 20:59 22:18 05:46 WBC 15.10 H RBC 3.94 L Hgb 11.0 L 9.9 L Hct 33.9 MCV 86 MCH 28 MCHC 32 Plt Count 145 BUN 11 Creatinine 0.7 Estimated Creat Clear 119.62 Estimated GFR 120 AST 33 ALT 17 Urine Creatinine 259.8 Protein/Creatinin Ratio 0.08 Urine Total Protein 21 Screen Negative OB - PN: A/P Delivery Assessment and Plan (1) Chronic hypertension affecting : Status: Acute Assessment and Plan: Continue labetalol 300 mg TID. (2) Twin : Status: Resolved (3) growth restriction: Status: Resolved (4) Status post primary low transverse section: Problem details: Twins at 36 2/7 weeks Status: Acute (5) Acute blood loss anemia: Problem details: Hemoglobin 9.9 Status: Acute Plan day: 1 Plan: routine care Comments: Remove dressing this evening.
[2025-07-07] VITALS (7 sets, daily range): BP systolic 123–135; BP diastolic 76–92; PULSE 96–114; RESP 16–20; TEMP 36.5–37.1; O2SAT 96–98
[2025-07-07] MEDS: SODIUM CHLORIDE 0.9 % (FLUSH) 10 ML SYRINGE IVF (03:07)
[2025-07-07] MEDS: DOCUSATE SODIUM 100 MG CAPSULE PO (08:42)
[2025-07-07] MEDS: LABETALOL HCL 100 MG TABLET 300 MG PO ×3 (08:42→21:06)
[2025-07-07] MEDS: IBUPROFEN 600 MG TABLET PO ×2 (09:51→17:07)
--- NOTE | 2025-07-07 13:18 | P.OBPN_ITS ---
OB - PN:Subj Subjective Date Seen: 07/07/25 Patient comments OB post-: no complaints, pain well controlled, tolerating diet and flatus present [place] status: (Pumping and bottle feeding the breast milk) Narrative: The patient is a 30-year-old 1 now para 0102 who is postoperative day 2. Following primary low transverse section of twins at 36 2/7 weeks gestation for suspected IUGR of twin B. her was complicated by chronic hypertension, well controlled on labetalol 300 mg t.i.d.. She feels well. Her pain has been adequately controlled. Vital signs are stable. She is working on breast pumping and bottle feeding breast milk. The twins will likely be ready for discharge tomorrow. OB - PN: Obj Exam Physical Exam: Vital signs: Temp Pulse Resp BP Pulse Ox O2 Del Method 97.7 F 114 H 20 125/90 H 96 Room Air 07/07/25 09:00 07/07/25 09:00 07/07/25 09:00 07/07/25 09:00 07/07/25 09:00 07/07/25 09:00 Constitutional: Constitutional: no acute distress Routine Neck Exam: Neck: Present normal inspection Routine Respiratory Exam: Respiratory: Present CTA bilaterally; Absent respiratory distress Routine Cardiovascular Exam: Cardiovascular: Present RRR; Absent murmur Routine Abdominal Exam: Abdominal: Present soft; Absent tenderness Fundus: Present firm Routine Extremities Exam: Extremities: Present normal inspection and pedal edema; Absent calf tenderness Routine Neurological Exam: Neurological: Present alert and oriented X3 Routine Psychiatric Exam: Psychiatric: Present normal affect Wound Management: Method: suture Examination: Present clean, dry and intact; Absent erythematous Comments: Pfannenstiel incision OB - PN: Obj Data Labs Labs: Laboratory Results - last 24 hr 07/05/25 07/06/25 11:57 05:46 RPR Screen Non Reactive Screen Negative OB - PN: A/P Delivery Assessment and Plan (1) Chronic hypertension affecting : Status: Acute (2) Twin : Status: Resolved (3) growth restriction: Status: Resolved (4) Status post primary low transverse section: Problem details: Twins at 36 2/7 weeks Status: Acute (5) Acute blood loss anemia: Problem details: Hemoglobin 9.9 Status: Acute Plan day: 2 Plan: routine care Comments: Anticipate discharge tomorrow.
[2025-07-07] MEDS: ACETAMINOPHEN 500 MG TABLET 1000 MG PO ×2 (14:15→21:05)
[2025-07-08 04:27] VITALS: BP 147/90; PULSE 93; RESP 16; TEMP 36.5
[2025-07-08 08:38] VITALS: BP 147/95; PULSE 98; RESP 18; TEMP 36.6; O2SAT 98
[2025-07-08] MEDS: DOCUSATE SODIUM 100 MG CAPSULE PO (08:54)
[2025-07-08] MEDS: LABETALOL HCL 100 MG TABLET 300 MG PO ×2 (08:54→14:07)
[2025-07-08 08:55] VITALS: TEMP 36.6
[2025-07-08] MEDS: IBUPROFEN 600 MG TABLET PO (08:55)
--- NOTE | 2025-07-08 08:56 | PM.OBDSVD1 ---
DS: Providers Provider Date Seen: 07/08/25 Date of admission: 07/05/25 11:23 Primary care physician: Prince Rubi MD Admitting Clinician: Arcelia Rivas MD Attending Physician on discharge: Hayley Slade CNM Date of Discharge: 07/08/25 DS: Diagnosis Discharge Diagnosis (1) Status post primary low transverse section: Status: Acute Problem details: Twins at 36 2/7 weeks (2) Anemia affecting : Status: Acute (3) Chronic hypertension affecting : Status: Acute (4) care and examination of lactating mother: Status: Acute Exam Narrative: Exam Narrative: VSS. ?AfebrileGENERAL APPEARANCE: ?normal affect, alert, no distress MOOD: ?appropriate HEENT: normocephalic, neck supple, full ROM CHEST: ?Symmetrical chest wall movement. ?Normal respiratory effort. ?Clear to auscultation HEART: ?regular rate and rhythm ABDOMEN: ?soft, non-tender. Uterine fundus is firm, at Umbilicus, Midline and is appropriate for the stage of recovery. ?Bowel sounds present. EXTREMITIES: ?normal and 1+ edema SKIN: warm, dry. ? ?Incision clean/dry/well approximated. ?No signs of infection noted. Const: Vital Signs, click to edit/add: Vital Signs - 24 hr 07/07/25 09:00 07/07/25 13:00 07/07/25 17:00 Temperature 97.7 F 97.9 F 98.3 F Pulse Rate [Pulse Oximeter] 114 H 101 H 102 H Respiratory Rate 20 18 18 Blood Pressure [Le ft Arm] 125/90 H 123/87 125/92 H Pulse Oximetry 96 96 97 Oxygen Delivery Me thod Room Air Room Air Room Air 07/07/25 19:50 07/08/25 04:27 07/08/25 08:38 Temperature 98.7 F 97.7 F 97.9 F Pulse Rate [Pulse Oximeter] 104 H 93 98 Respiratory Rate 16 16 18 Blood Pressure [Le ft Arm] 127/76 147/90 H 147/95 H Pulse Oximetry 97 98 Oxygen Delivery Me thod Room Air Room Air Room Air 07/08/25 08:55 Temperature 97.8 F Pulse Rate [Pulse Oximeter] Respiratory Rate Blood Pressure [Le ft Arm] Pulse Oximetry Oxygen Delivery Me thod Documenting provider has reviewed patient's vital signs: yes OB - DS: Summary Hospital Course Hospital Course: Johanna is a 30 y.o. who was admitted to [facility] for scheduled for di/di twin gestation. ?She had an uncomplicated primary .?The patient feels well. ?The pain is well controlled with current medications. ?She has no new complaints. ?She is breast feeding and reports things are going well.? the patient has done well.? Vitals have been stable, although last two BP readings are mildly elevated. Addition of nifedipine today as discussed with Dr. Chew.? She has remained afebrile.? Has a good appetite, is tolerating a general diet. ?She is voiding without difficulty.? She is passing gas and has had a bowel movement.? She is ambulating and denies any dizziness.? Has Small amount of rubra lochia. ?She is undecided on her plan for prevention. Peripartum Data Laceration description: None Procedures: Procedures Operation Date: 07/05/25 17:00 Actual Procedure Side Surgeon p Section Twins Not Applicable Batsheva Hossein Chew MD complications: none [place] Infant Gender: Female Infant Discharge Plan: Home A Infant Gender: Female Discharge Plan: Home B Gender: Male Infant Discharge Plan: Home Status at Discharge Functional status at discharge: independent ambulation Overall status at discharge: patient is progressing back to baseline Time Spent with Patient Time attestation: Total time spent providing and/or coordinating discharge services: Time spent: Less than 30 minutes Discharge Plan Discharge Disposition: Home, Self-Care Date of Admission: 07/05/25 11:23 Attending Provider on Discharge: Hayley Slade Primary Care Provider: Prince Rubi Condition: Stable Anticipated Discharge Date/Time: 07/08/25 12:00 Discharge Medications: New nifedipine 30 mg Tablet Extended Release 30 mg PO DAILY Qty: 30 1RF acetaminophen 500 mg Tablet 1,000 mg PO Q6H PRN (Reason: Pain) Qty: 0 0RF docusate sodium 100 mg Capsule 100 mg PO DAILY Qty: 90 0RF ibuprofen 600 mg Tablet 600 mg PO Q6H PRN (Reason: Pain) Qty: 60 0RF oxycodone 5 mg Tablet 5 - 10 mg PO Q4H PRN (Reason: Pain) Qty: 10 0RF Continued folic acid 400 mcg tablet 0.4 mg PO QDAY One-A-Day 400 mcg- 25 mg tablet,chewable 1 tab PO DAILY cholecalciferol (vitamin D3) 50 mcg (2,000 unit) capsule 50 mcg PO QDAY calcium citrate 200 mg (950 mg) tablet 200 mg PO QDAY ondansetron 4 mg tablet,disintegrating 4 mg PO Q8H PRN (Reason: nausea and vomiting) Qty: 15 0RF ferrous sulfate 325 mg (65 mg iron) tablet 325 mg PO Q OTHER DAY Qty: 60 1RF labetalol 300 mg tablet 300 mg PO 3XD Qty: 90 1RF Discontinued aspirin 81 mg tablet,chewable 81 mg PO QDAY Discharge Orders: Discharge Order (Routine); Ordered 07/08/25 Ordered By: Hayley Slade Patient Education: Bupivacaine Liposome (By injection), OB Over the Counter Medication Information, OB /Breast Feeding Additional Instructions: Discharge instructions were reviewed with the patient including signs and symptoms of infection and home going medications Lifting Restrictions: 20 pounds for 6 weeks No not submerge incision under water X 2 weeks? Nothing vaginally for 6 weeks: no tampons or intercourse Do not drive while taking narcotic pain medication(s) Off Work or School for 6 weeks [facility] for a BP check?[07/10 or 07/11] Call with BP greater than or equal to 150/100 2-week visit: incision check, discuss feeding concerns, review control options and screen for anxiety/depression. 6-week visit for an annual exam. consultation services are available to all mothers and babies for the first year after delivery.? To make an appointment, please call [phone]. Activity Level: Activity as Tolerated Activity Detail: Lifting Restrictions: 20 pounds for 6 weeks Discharge Diet: Regular Follow Up App[facility]ments: [facility] [Provider Group] Forms: [employer] Info Instructions
[2025-07-08] MEDS: ACETAMINOPHEN 500 MG TABLET 1000 MG PO (12:15)
[2025-07-08 14:08] VITALS: BP 122/71; PULSE 98; RESP 18; TEMP 36.6; O2SAT 98
== END 2025-07-08 16:20 | disposition home or self-care (01) | DRG 540 ==
PROVIDERS: Obstetrics & Gynecology; Admitting Provider Obstetrics & Gynecology; PCP Family Medicine; Visit Provider Obstetrics & Gynecology
PROC: 10D00Z1 Extraction of Products of Conception, Low, Open Approach (ICD-10-PCS; CPT 59514; principal; 2025-07-05 17:00)
DX: O30.043 Twin pregnancy, dichorionic/diamniotic, third trimester (principal); O16.4 Unspecified maternal hypertension, complicating childbirth; O36.5932 Maternal care for other known or suspected poor fetal growth, third trimester, fetus 2; G89.18 Other acute postprocedural pain; O99.02 Anemia complicating childbirth; D64.9 Anemia, unspecified; O99.824 Streptococcus B carrier state complicating childbirth; O26.893 Other specified pregnancy related conditions, third trimester; Z67.11 Type A blood, Rh negative; Z3A.36 36 weeks gestation of pregnancy; Z37.2 Twins, both liveborn; O10.913 Unspecified pre-existing hypertension complicating pregnancy, third trimester
CPT/HCPCS: 01961; 36415; 64488; 76942; 82565; 82570; 84156; 84450; 84460; 84520; 85018; 85025; 85027; 85461; 86592; 86850; 86870; 86900; 86901; 88307; A4314; A9270; J0665; J0666; J0690; J1885; J2371; J2405; J2590; J2791; J7120

== ENCOUNTER 2025-07-11 10:19 | Outpatient (CLI) | payer BC, SELFPAY | END 2025-07-11 10:20 | disposition home or self-care (01) | PROVIDERS: PCP Family Medicine; Visit Provider Physician Assistant | DX: O10.913 Unspecified pre-existing hypertension complicating pregnancy, third trimester (principal) | CPT/HCPCS: 82565; 82570; 84156; 84450; 84460; 84520 ==

== ENCOUNTER 2025-07-12 09:31 | Outpatient (CLI) | payer BC, SELFPAY | END 2025-07-12 09:32 | disposition home or self-care (01) | PROVIDERS: PCP Family Medicine; Visit Provider Physician Assistant | DX: O10.913 Unspecified pre-existing hypertension complicating pregnancy, third trimester (principal) | CPT/HCPCS: 82565; 82570; 84156; 84450; 84460; 84520 ==